=== PATIENT | male | born 1970 | race Caucasian/White ===

== ENCOUNTER 2021-05-28 07:24 | Day surgery (SDC) | payer BC ==
[~2021-05-28] VITALS: Ht 162.6 cm; Wt 100.3 kg
[2021-05-28 08:35] VITALS: BP 124/93; PULSE 81; TEMP 98.2
--- NOTE | 2021-05-28 08:35 | NUR ---
Back from Colonoscopy. Alert and oriented. Ambulates from cart to chair with steady gait and standby assist. VSS. Eating blueberry muffin and OJ.
[2021-05-28 08:55] VITALS: BP 120/83; PULSE 74; TEMP 98.2
[2021-05-28 12:20] VITALS: BP 131/85; PULSE 84; TEMP 98.2
== END 2021-05-28 12:59 | disposition home or self-care (01) ==
LOC: SDCO 07:24
DX: Z12.11 Encounter for screening for malignant neoplasm of colon (principal); M54.9 Dorsalgia, unspecified; G89.29 Other chronic pain; Z86.010 Personal history of colon polyps; Z80.0 Family history of malignant neoplasm of digestive organs
CPT/HCPCS: J2704; J7120